=== PATIENT | female | born 1960 | race Caucasian/White ===

== ENCOUNTER 2018-01-23 12:35 | Day surgery (SDC) | payer BC ==
[2018-01-23] MEDS ORDERED: Betamethasone Acetate/Betamethasone Sod Phosphate 30 MG/5 ML MDV ONE (13:33)
[2018-01-23] MEDS ORDERED: Iopamidol 408 MG/ML 50 ML SDV ONE (13:33)
[2018-01-23] MEDS ORDERED: Lidocaine 2% 5 ML SDV ONE (13:33)
[2018-01-23] MEDS ORDERED: Ropivacaine 0.5% 5 MG/ML 30 ML SDV ONE (13:33)
--- NOTE | 2018-01-23 16:29 | OR ---
SURGEON: Camila Avalos D.O. DATE OF PROCEDURE: 01/23/2018 OR STAFF PRESENT: 1. Wilder Durham RN. 2. Wilder Samuels RN. 3. RT Lizbeth. WOUND CLASSIFICATION: I. PREOPERATIVE DIAGNOSES: 1. Lumbar degenerative disk disease, L4-L5. 2. Lumbar spinal stenosis. 3. Lumbar radiculopathy. POSTOPERATIVE DIAGNOSES: 1. Lumbar degenerative disk disease, L4-L5. 2. Lumbar spinal stenosis. 3. Lumbar radiculopathy. PROCEDURES PERFORMED: 1. Lumbar interlaminar epidural steroid injection at L4-5. 2. Fluoroscopic guidance for needle placement. 3. Local with oral valium for sedation. SCREENING QUESTIONS: The patient answered "no" to all of the following questions: 1. Are you allergic to latex? 2. Do you have a bleeding disorder? 3. Do you have any current local or systemic infections? 4. Are you taking any anti-inflammatories or blood thinners? 5. Do you have any joint replacements, heart valve replacements, or a pacemaker? DESCRIPTION OF PROCEDURE: The patient had the procedure thoroughly explained including all possible risks, benefits and alternatives. Consent was signed in my clinic indicating understanding and willingness to proceed. The patient presented to [facility] [place] and was escorted to the dressing room to disrobe and change into a hospital gown. Preoperative vital signs were taken and stable. The patient reported that Valium was taken prior to the procedure. The patient was brought back to the procedure room and placed in the prone position on the procedure room table. A pillow was placed under the hips in order to flatten the lumbar lordosis. The back was prepped with ChloraPrep and sterilely draped. All personnel in the operating room were dressed in appropriate attire including surgical scrubs, head and shoe covers. This was to ensure sterility while in the treatment room. During the time fluoroscopy was in use, all personnel in the operating room wore lead hayden with thyroid collars. Sterile technique was used throughout the procedure. The patient was awake and conversant throughout the procedure. There was no evidence of infection at the site of needle insertion. Skeletal landmarks were identified under fluoroscopy for the lumbar epidural. Skin was anesthetized with 2% lidocaine with a sterile 27-gauge 1.5 inch needle. Then, a 20-gauge Tuohy epidural needle was placed in the epidural space with loss of resistance technique under fluoroscopic guidance. No heme, cerebrospinal fluid, or paresthesias were noted. Isovue-200 contrast dye was injected in 0.2 cubic centimeter increments and seen to outline the epidural space in both AP and lateral views. There was no intravascular flow pattern observed under live fluoroscopy. Then, 12 milligrams of Celestone was slowly injected after negative aspiration. The patient tolerated the procedure well. Vital signs were stable during and after the procedure. The staff escorted the patient to the recovery area and the patient was released in stable condition after a brief stay in the recovery room monitored by the nurse. The patient was given both oral and written discharge and follow up instructions with recommendation to follow up given for 2-3 weeks. The patient voiced understanding including understanding of those signs and symptoms that would require emergency care. The patient knows how to contact the office if there are any additional problems or questions in the meantime. PREOPERATIVE PAIN: 5+/10. POSTOPERATIVE PAIN: 1 to 2/10. FOLLOWUP: Follow up in the pain clinic in 3 weeks. VILMA / BRITTANEY /[id number]
== END 2018-01-23 14:00 | disposition home or self-care (01) ==
LOC: MW.SDS 12:35
PROVIDERS: ATTEND Anesthesiology
DX: M51.16 Intervertebral disc disorders with radiculopathy, lumbar region (principal); M48.061 Spinal stenosis, lumbar region without neurogenic claudication; F17.210 Nicotine dependence, cigarettes, uncomplicated; M79.1 Myalgia; F41.9 Anxiety disorder, unspecified; M54.5 Low back pain; M46.98 Unspecified inflammatory spondylopathy, sacral and sacrococcygeal region; Z79.899 Other long term (current) drug therapy
CPT/HCPCS: 62323; J0702; J2795; Q9966

== ENCOUNTER 2020-06-08 08:39 | Day surgery (SDC) | payer BC ==
[~2020-06-08 08:39] MED LIST: Lactated Ringers 1,000 ML IV SCH
[2020-06-08] MEDS ORDERED: Propofol 200 MG/20 ML SDV ONE (08:57)
[2020-06-08] MEDS ORDERED: Lidocaine 2% 5 ML SDV ONE (08:57)
[2020-06-08] MEDS ORDERED: fentaNYL 100 MCG/2 ML SDV ONE (08:57)
[2020-06-08] MEDS ORDERED: Midazolam 1 MG/ML 2 ML SDV ONE (08:57)
--- NOTE | 2020-06-08 09:19 | PCM.PREANE ---
Preanesthetic Assessment - Anesthesia/Transfusion/Family Hx Anesthesia History: Prior Anesthesia Without Reaction Other Type of Anesthesia Reaction Comment: wakes up crying or very aggressive Family History of Anesthesia Reaction: No Transfusion History: No Prior Transfusion(s) Intubation History: Unknown - Review of Systems General: No Symptoms Pulmonary: No Symptoms Cardiovascular: No Symptoms Gastrointestinal: Other (h/o colitis (on steroids) , recent wt. loss) Neurological: No Symptoms Other: Reports: None - Physical Assessment Height: 5 ft 7 in Weight: 47.174 kg ASA Class: 2 Mental Status: Alert & Oriented x3 Airway Class: Mallampati = 2 Dentition: Reports: Dentures (upper) Thyro-Mental Finger Breadths: 3 Mouth Opening Finger Breadths: 3 ROM/Head Extension: Limited/Partial Lungs: Clear to Auscultation, Normal Respiratory Effort Cardiovascular: Regular Rate, Regular Rhythm - Allergies Allergies/Adverse Reactions: Allergies Allergy/AdvReac Type Severity Reaction Status Date / Time amoxicillin [From Augmentin] Allergy GI symptoms Verified 06/02/20 09:25 clavulanic acid Allergy GI symptoms Verified 06/02/20 09:25 [From Augmentin] - Blood Blood Available: No - Anesthesia Plan Pre-Op Medication Ordered: None - Acknowledgements Anesthesia Type Planned: MAC Pt an Appropriate Candidate for the Planned Anesthesia: Yes Alternatives and Risks of Anesthesia Discussed w Pt/Guardian: Yes Pt/Guardian Understands and Agrees with Anesthesia Plan: Yes PreAnesthesia Questionnaire HEENT History: Reports: Other (See Below) Other HEENT History: wears glasses, upper denture Cardiovascular History: Reports: High Cholesterol Respiratory History: Reports: Bronchitis, Recurrent, Other (See Below) Other Respiratory History: has prescribed inhaler for when she "gets a cold or bronchitis", smokes 1 PPD x 30 years Gastrointestinal History: Reports: GERD, Irritable Bowel Syndrome, Other (See Below) Other Gastrointestinal History: colitis, hx c-diff Genitourinary History: Reports: Other (See Below) Other Genitourinary History: over active bladder, takes Vesicare [employer] History: Reports: None Musculoskeletal History: Reports: None Neurological History: Reports: Other (See Below) Other Neuro History: hx of motion sickness Psychiatric History: Reports: Anxiety, Depression, Other (See Below) (anorexia) Endocrine/Metabolic History: Reports: None Hematologic History: Reports: None Immunologic History: Reports: None Oncologic (Cancer) History: Reports: None Dermatologic History: Reports: None - Past Surgical History Head Surgeries/Procedures: Reports: None HEENT Surgical History: Reports: None Cardiovascular Surgical History: Reports: None Respiratory Surgical History: Reports: None GI Surgical History: Reports: Appendectomy, Colonoscopy, Hernia, Abdominal Female Surgical History: Reports: Hysterectomy Endocrine Surgical History: Reports: None Neurological Surgical History: Reports: None Musculoskeletal Surgical History: Reports: None Oncologic Surgical History: Reports: None Dermatological Surgical History: Reports: None - SUBSTANCE USE Tobacco Use Status *Q: Current Every Day Tobacco User Tobacco Use Within Last Twelve Months: Cigarettes - HOME MEDS Home Medications: Home Meds ALPRAZolam [Xanax] 1 tab PO ASDIRECTED PRN 04/20/16 [History] Budesonide [Budesonide EC] 1 tab PO ASDIRECTED 04/20/16 [History] Escitalopram Oxalate 20 mg PO QPM 04/20/16 [History] Solifenacin [Vesicare] 5 mg PO DAILY 04/20/16 [History] atorvaSTATin Calcium [Atorvastatin Calcium] 10 mg PO DAILY 04/20/16 [History] Albuterol Sulfate [Proair Hfa] 1 - 2 puff INH ASDIRECTED PRN 06/02/20 [History] Cholecalciferol (Vitamin D3) [Vitamin D3] 2,000 units PO DAILY 06/02/20 [History] Cyanocobalamin (Vitamin B12) [Vitamin B12] 100 mcg PO DAILY 06/02/20 [History] Omeprazole 20 mg PO DAILY 06/02/20 [History] Ondansetron [Zofran] 8 mg PO ASDIRECTED PRN 06/02/20 [History] - CURRENT (IN HOUSE) MEDS Current Meds: Current Medications Lactated Ringer's (Ringers, Lactated) 1,000 mls @ 125 mls/hr IV ASDIRECTED CHAPO Discontinued Medications Fentanyl (Sublimaze) Confirm Administered Dose 100 mcg .ROUTE .STK-MED ONE Stop: 06/08/20 08:58 Lidocaine (Xylocaine-Mpf 2%) Confirm Administered Dose 5 ml .ROUTE .STK-MED ONE Stop: 06/08/20 08:58 Midazolam HCl (Versed 1 Mg/Ml) Confirm Administered Dose 2 mg .ROUTE .STK-MED ONE Stop: 06/08/20 08:58 Propofol (Diprivan 20 Ml) Confirm Administered Dose 400 mg .ROUTE .[facility] ONE Stop: 06/08/20 08:58
--- NOTE | 2020-06-08 11:18 | PCM.OPNOTE ---
- General Post-Op/Procedure Note Date of Surgery/Procedure: 06/08/20 Operative Procedure(s): egd w bx. colonoscopy w bx Findings: see [id number] Pre Op Diagnosis: wt loss and colitis. gerd Post-Op Diagnosis: Same Anesthesia Technique: Moderate Sedation Primary Surgeon: Morales Santiago Pathology: egd bx colon random bx and polyps at distance 30, 25 cm when scope went in, and 25, 20, 15, 15 when scope went out Complications: None Condition: Good
--- NOTE | 2020-06-08 11:58 | PCM.POSTAN ---
POST ANESTHESIA ASSESSMENT - MENTAL STATUS Mental Status: Alert, Oriented - VITAL SIGNS Vital Signs: Last Vital Signs Temp 36.6 C 06/08/20 09:12 Pulse 45 L 06/08/20 11:30 Resp 14 06/08/20 11:30 BP 102/51 L 06/08/20 11:30 Pulse Ox 94 L 06/08/20 11:30 - RESPIRATORY Respiratory Status: Respiratory Rate WNL, Airway Patent, O2 Saturation Stable - CARDIOVASCULAR CV Status: Pulse Rate WNL, Blood Pressure Stable - GASTROINTESTINAL GI Status: No Symptoms - PAIN Pain Score: 0 - POST OP HYDRATION Hydration Status: Adequate & Stable - OBSERVATIONS Free Text/Narrative:: No anesthesia problems
--- NOTE | 2020-06-08 11:58 | PCM48HPAN ---
Post Anesthesia Note - EVALUATION WITHIN 48HRS OF ANESTHETIC Vital Signs in Normal Range: Yes Patient Participated in Evaluation: Yes Respiratory Function Stable: Yes Airway Patent: Yes Cardiovascular Function Stable: Yes Hydration Status Stable: Yes Pain Control Satisfactory: Yes Nausea and Vomiting Control Satisfactory: Yes Mental Status Recovered: Yes Vital Signs: Last Vital Signs Temp 36.6 C 06/08/20 09:12 Pulse 45 L 06/08/20 11:30 Resp 14 06/08/20 11:30 BP 102/51 L 06/08/20 11:30 Pulse Ox 94 L 06/08/20 11:30 - COMMENTS/OBSERVATIONS Free Text/Narrative:: No anesthesia problems
[2020-06-08 13:25] VITALS: BP 98/54; PULSE 53
--- NOTE | 2020-06-08 15:41 | OR ---
SURGEON: Morales Santiago MD DATE OF PROCEDURE: 06/08/2020 PREOPERATIVE DIAGNOSES: Acid reflux and weight loss and lymphocytic colitis history. PROCEDURES PERFORMED: Esophagogastroduodenoscopy with biopsy and colonoscopy with biopsy. DESCRIPTION OF PROCEDURE: EGD: The patient was taken to the endoscopy room, and with the [employer], Diprivan was administered. A well-lubricated EGD scope was gently inserted through the oropharynx, down the esophagus, passing through the gastroesophageal junction, into the stomach. The mucosa was examined upon the passage. Any etiology will be noted. Once in the stomach, we continued to advance to the distal antrum, passed through the pylorus into the second portion of the duodenum. Again, the mucosa was examined for any abnormality and etiology. The scope was then retrieved back to the stomach and then retroflexed to look at the fundus of the stomach. If a biopsy was indicated, we will biopsy the antrum, body, and gastroesophageal junction. The air will be sucked out while the scope is retrieved to reduce the patient's discomfort. The patient tolerated the procedure well. There were no intraoperative complications. Dr. Santiago was present through the whole procedure. Prior to surgery, a time-out had been called, the patient identified, procedure identified and antibiotic administered. The patient was taken to the endoscopy room. A time out was called, patient identified, and procedure identified. Diprivan was then administrated. Patient went from awake to sleep, hearing doctor talking or door closing is normal. Perineum inspection and digital examination were then performed. A well- lubricated colonoscope was gently inserted through the rectum, advanced past the rectosigmoid junction, the descending colon, splenic flexure, transverse colon, hepatic flexure, ascending colon, arrived to the cecum. Cecum was identified as dictated in the finding. Then the scope was carefully withdrawn while attention was paid to the mucosal surface for any abnormality. Air will be sucked out during the scope withdrawal. At the rectum, retroflexed to examine any rectal diseases, fistula or hemorrhoids. During mucosal examination, abnormality or polyp was noted; picture taken and biopsy performed. Patient tolerated procedure well. There were no intraoperative complications, and Dr. Santiago was present throughout the whole procedure. FINDINGS: EGD findings: 1. The patient is easily sedated with [employer]ER and Diprivan, the patient is soundly snoring. 2. The patient does not have a gastric bypass. The patient has a totally working all the stomach she has. Oropharynx and proximal esophagus are free of disease, stricture, infection, none of those. Distal esophagus at GE junction at 40 shows mild salmon-colored change and also noted to have Schatzki ring, esophagus. Stomach rugae are normal in appearance. Antrum looks a little bit inflamed. Duodenum is grossly normal. Retroflexed look at the fundus of stomach, the patient has a mild hiatal hernia. Biopsy done at antrum, body, and GE junction at 40, which I did two biopsies, one is at the ring, which is the change at the mucosal appearance and the other one is above the ring, like a 38 or 37 cm. So biopsies done and sucked out the gas while scope pulling out. During the whole study, the patient does not have ulcer, blood, food, or bile. Colonoscopy findings: 1. The patient is easily sedated with E[employer]RON[employer]ER and Diprivan, the patient is soundly snoring. 2. Bowel prep is average with a large amount of liquid stool, no semi-formed stool, and with some bubbles too. Colon is rather redundant at the sigmoid requiring abdominal compression-decompression and reached to the cecum and also colon kind of difficult to distend requiring air and carbon dioxide together. Cecum indicated by ileocecal fold, one-to-one indentation, appendiceal orifice. ScopeGuide is pointing south. Mucosa examined upon scope pulling out. The patient has several small polyps, sessile polyps removed with cold biopsy forceps, 30 cm when the scope go in and 20 cm when the scope go in, and random colon biopsy because of previous history of lymphocytic colitis. Also, 25, 20, and 15 cm when the scope come out, three 2 mm polyp, plus whatever in the pathology report. The patient has a large amount of external hemorrhoids, large amount of internal hemorrhoids. The patient would benefit from repeat colonoscopy, it depends on the polyp pathology. HERMELINDO / BRITTANEY /[id number]
== END 2020-06-08 12:05 | disposition home or self-care (01) ==
LOC: MW.SDS 08:39
PROVIDERS: ATTEND Surgery
DX: D12.6 Benign neoplasm of colon, unspecified (principal); K29.50 Unspecified chronic gastritis without bleeding; K21.00 Gastro-esophageal reflux disease with esophagitis, without bleeding; K22.2 Esophageal obstruction; K44.9 Diaphragmatic hernia without obstruction or gangrene; K64.4 Residual hemorrhoidal skin tags; K64.8 Other hemorrhoids; E78.00 Pure hypercholesterolemia, unspecified; F17.210 Nicotine dependence, cigarettes, uncomplicated; Z87.19 Personal history of other diseases of the digestive system; Z79.899 Other long term (current) drug therapy; Z90.49 Acquired absence of other specified parts of digestive tract; Z98.890 Other specified postprocedural states; Z88.1 Allergy status to other antibiotic agents; Z88.8 Allergy status to other drugs, medicaments and biological substances
CPT/HCPCS: 00813; 88305; J2001; J2250; J2704; J3010; J7120

== ENCOUNTER 2023-09-27 10:34 | Day surgery (SDC) | payer BC ==
[2023-09-27] MEDS: Lactated Ringers 1,000 ML IV SCH (11:46)
[2023-09-27] MEDS ORDERED: Lidocaine 2% 5 ML SDV ONE (12:14)
[2023-09-27] MEDS ORDERED: Propofol 200 MG/20 ML SDV ONE ×2 (12:15→12:49)
[2023-09-27] MEDS ORDERED: Lactated Ringers 1,000 ML IV SCH (13:00)
[2023-09-27 13:12] VITALS: PULSE 54
[2023-09-27 13:25] VITALS: BP 113/71
== END 2023-09-27 13:35 | disposition home or self-care (01) ==
LOC: MW.SDS 10:34
PROVIDERS: ATTEND Surgery
DX: Z12.11 Encounter for screening for malignant neoplasm of colon (principal); D12.5 Benign neoplasm of sigmoid colon; K64.9 Unspecified hemorrhoids; Z86.010 Personal history of colon polyps; K21.9 Gastro-esophageal reflux disease without esophagitis; F41.9 Anxiety disorder, unspecified; E78.00 Pure hypercholesterolemia, unspecified; F17.210 Nicotine dependence, cigarettes, uncomplicated; Z79.899 Other long term (current) drug therapy; Z88.0 Allergy status to penicillin
CPT/HCPCS: 45380; J2704; J7120; 00811; J3490